=== PATIENT | female | born 1970 | race Caucasian/White ===

== ENCOUNTER 2018-09-30 05:26 | Day surgery (SDC) | payer OTHER ==
[2018-09-17 16:11] VITALS: BMI 25.6
[2018-09-30] MEDS ORDERED: VASOPRESSIN 20 UNITS/ML VIAL IV ONE ×3 (07:20→07:21)
[2018-09-30] MEDS ORDERED: ceFAZolin SODIUM 1 GM VIAL ONE (09:34)
[2018-09-30] MEDS ORDERED: DEXAMETHASONE SOD PHOSPHATE 4 MG/1 ML VIAL ONE (09:34)
[2018-09-30] MEDS ORDERED: LIDOCAINE HCL/PF 2% SDV 5ML VIAL ONE (09:34)
[2018-09-30] MEDS ORDERED: PROPOFOL 20 ML ONE (09:35)
[2018-09-30] MEDS ORDERED: GENTAMICIN SO4 80 MG/2 ML VIAL ONE (09:36)
[2018-09-30] MEDS ORDERED: ceFAZolin SODIUM 1 GM VIAL IVPB ONE (09:42)
[2018-09-30] MEDS ORDERED: GENTAMICIN SO4 80 MG/2 ML VIAL IVPB ONE (09:51)
[2018-09-30] MEDS ORDERED: ONDANSETRON 4 MG/2 ML VIAL IVPUSH PRN (10:12)
[2018-09-30] MEDS ORDERED: oxyCODONE HCL 5 MG TABLET PO PRN ×2 (10:12→10:55)
[2018-09-30] MEDS ORDERED: LACTATED RINGERS SOLUTION 1,000 ML IV SCH (10:15)
[2018-09-30] MEDS ORDERED: GLYCOPYRROLATE 0.2 MG/1 ML VIAL ONE (10:32)
--- NOTE | 2018-09-30 10:58 | OP ---
Operative Note - Note: Operative Date: 09/30/18 Pre-Operative Diagnosis: stress incont/cystocele Operation: suburethral sling/cystocele repair Post-Operative Diagnosis: Same as Pre-op Surgeon: Adrian Faria Anesthesia: General Estimated Blood Loss (mls): 10 Operative Report Dictated: Yes
[2018-09-30] MEDS ORDERED: DEXTROSE 5%-0.45% SALINE 1,000 ML IV SCH (11:00)
--- NOTE | 2018-09-30 12:20 | OP ---
DATE OF OPERATION: 09/30/2018 PREOPERATIVE DIAGNOSIS: Stress urinary incontinence and cystocele. POSTOPERATIVE DIAGNOSIS: Stress urinary incontinence and cystocele. PROCEDURE: Suburethral sling placement, Altis type Coloplast, and cystocele repair. SURGEON: Adrian Faria MD INDICATIONS: The patient is a 48-year-old female with stress urinary incontinence and cystic who after reviewing treatment options would like to undergo sling and cystocele repair. Risk and benefits of both procedures discussed with specific attention on the sling. The potential for mesh erosion, stricture formation, urinary retention, De Jose urge incontinence, persistent stress incontinence, potential injury to additional organs, and potential need for additional procedures. Specific to the sling, risk of recurrence of upwards of 30%. DESCRIPTION OF PROCEDURE: After informed consent was obtained, the patient was taken to the OR and placed supine on the operating room table. After cardiac monitoring was administered, general anesthesia was then established. She was prepped and draped in dorsal lithotomy position. She was given 1 g of Ancef and 1 mL of gentamicin. At this point, Pitressin was injected suburethrally at the level of the midurethra and a suburethral incision created with a No. 15 blade. The vaginal epithelium was dissected free from the undersurface of the urethra extending laterally until bone could be identified. Using sharp and digital dissection, the obturator membrane bilaterally could be felt. Da Silva was placed at the start of the case. At this point, the trocar arm was attached to the anchor on the static trocar, and the trocar was advanced under visual guidance into the patient's left obturator foramen. The foramen was pierced and then the trocar was turned slightly to anchor the anchor securely. The trocar was then removed, and a tug on the sling indicated secure placement of the anchor. In a similar fashion on the patient's right side, the trocar was advanced into the anchor and then the trocar anchor combination was advanced into obturator membrane piercing it and then with a slight twist turn to anchor the anchor securely. Again, the suture was tugged on to indicate adequate anchoring. At this point then the suture was tightened to make sure the sling was on the undersurface of the urethra but without any tension, and a right-angle clamp placed between the urethra and the sling. The suture of the sling was then cut flush. At this point with the sling repair completed, cystoscopy was performed. Cystoscopy was performed. There was no evidence of any bladder or urethral injury. Bilateral ureteral orifices were seen in the normal anatomic position. At this point, attention was turned to cystocele repair. Again, Pitressin was used to inject the bulging cystocele, and the vaginal epithelium was from the bladder until the cystocele could be reduced. With the cystocele educed, a circumferential suture of 2-0 Vicryl was used in a cerclage fashion on the pubocervical fascia to reduce the cystocele, and this was tied down. With the cystocele now reduced, again cystoscopy was performed to make sure there is no evidence of any suture in the bladder or the urethra, and none was seen. Again, bilateral ureteral orifices were clearly seen. At this point then attention was turned to wound closure. The initial incision and the cystocele incision were both closed in a similar fashion with a running 2-0 Vicryl suture in a locking fashion. Vaginal packing was then placed, and the Da Silva was replaced. The patient was awoken from anesthesia and transferred to the recovery room in stable condition. There were no complications. Estimated blood loss was 10 mL. Reta [id number]
[2018-09-30] MEDS ORDERED: oxyCODONE HCL 5 MG TABLET ONE (13:28)
[2018-09-30] MEDS ORDERED: oxyCODONE HCL 5 MG TABLET PO ONE (13:30)
[2018-09-30 16:03] VITALS: BP 133/79; PULSE 62; TEMP 98.4
== END 2018-09-30 15:20 | disposition home or self-care (01) ==
LOC: JASU-SURG 05:26
PROVIDERS: ATTEND Urology
PROC: 0TSD0ZZ Reposition Urethra, Open Approach (ICD-10-PCS; 2018-09-30)
PROC: 0JQC0ZZ Repair Pelvic Region Subcutaneous Tissue and Fascia, Open Approach (ICD-10-PCS; principal; 2018-09-30 09:00)
DX: N39.3 Stress incontinence (female) (male) (principal); N81.10 Cystocele, unspecified
CPT/HCPCS: 57288; 57555; C1771; 84703; 94760